=== PATIENT | male | born 1980 | race Two or more races ===

== ENCOUNTER 2016-10-04 15:01 | Emergency (ER) | payer OTHER ==
[2016-10-04] MEDS ORDERED: KETOROLAC TROMETHAMINE 30 MG/ML 1 ML VIAL ONE (16:07)
--- NOTE | 2016-10-04 16:30 | RAD ---
History: Left-sided chest pain after fall. Comparison: 08/12/2015. Technique: 2 views Findings: The soft tissue and bony structures appear to be appropriate with no definitive rib fracture identified. The heart size is normal. There is linear left basilar atelectasis or scarring observed. No effusion or pneumothorax is seen. The hilar and mediastinal structures are intact. Impression: 1. Linear left basilar atelectasis or scarring.
== END 2016-10-04 16:47 | disposition home or self-care (01) ==
LOC: ED 15:01
DX: S29.9XXA Unspecified injury of thorax, initial encounter (principal); W22.8XXA Striking against or struck by other objects, initial encounter; Y93.02 Activity, running; Y92.9 Unspecified place or not applicable
CPT/HCPCS: 71020; 99283 ×2; 96372; J1885